=== PATIENT | male | born 1980 | race Two or more races ===

== ENCOUNTER 2024-01-14 18:44 | Emergency (ER) | payer OTHER ==
[~2024-01-14] VITALS: Ht 180.3 cm; Wt 95.3 kg
[2024-01-14] MEDS ORDERED: IRBESARTAN-HCT1 EACH PO (19:11)
[2024-01-14] MEDS ORDERED: KETOROLAC TROMETHAMINE 30 MG VIAL ONE (19:23)
[2024-01-14] MEDS ORDERED: HYOSCYAMINE SULFATE 0.125 MG TAB.SUBL ONE (19:23)
[2024-01-14] MEDS ORDERED: ONDANSETRON HCL 2 MG/ML VIAL ONE (19:23)
[2024-01-14] MEDS ORDERED: FAMOTIDINE/PF 20 MG/2 ML VIAL ONE (19:24)
[2024-01-14] MEDS ORDERED: FAMOTIDINE/PF 20 MG/2 ML VIAL IV PUSH ONE (19:30)
[2024-01-14] MEDS ORDERED: ONDANSETRON HCL 2 MG/ML VIAL IV ONE (19:30)
[2024-01-14] MEDS ORDERED: HYOSCYAMINE SULFATE 0.125 MG TAB.SUBL SL ONE (19:30)
[2024-01-14] MEDS ORDERED: KETOROLAC TROMETHAMINE 15 MG VIAL IV ONE (19:30)
[2024-01-14 19:46] LABS: PH,URINE 6.5 (5.0-8.0); URINE APPEARANCE Clear; URINE BILIRRUBIN Negative (NEGATIVE); URINE BLOOD Large; URINE COLOR Yellow; URINE GLUCOSE Negative (NEGATIVE); URINE KETONE Trace (NEGATIVE); URINE LEUKOCYTE Negative; URINE NITRATE Negative; URINE PROTEIN Trace (NEGATIVE)
[2024-01-14 19:48] LABS: HEMATOCRIT 44.1 % (39.0-48.0); HEMOGLOBIN 15.2 g/dL (13-16.00); MEAN CORPUSCULAR HEMOGLOBIN 28.3 pg (27.00-32.0); MEAN CORPUSCULAR HGB CONC 34.5 g/dl (32.0-36.0); PLATELET COUNT 222 K/uL (150-450); RED BLOOD COUNT 5.38 M/uL (4.00-6.00); RED CELL DISTRIBUTION WIDTH 13.3 % (11.5-14.5)
[2024-01-14 19:49] LABS: URINE BACTERIA 27.7 uL (0.0-1933); URINE EPITHELIAL CELLS 9.4 uL (0.0-38.8); URINE RBC 1029.1 uL (0.0-20.8); URINE WBC 10.3 uL (0.0-23.2)
[2024-01-14 19:56] LABS: URINE CAST 0.45 uL (0.0-1.40)
[2024-01-14 20:13] LABS: ALBUMIN 4.3 gm/dL (3.4-5.0); BILIRUBIN TOTAL 0.62 mg/dL (0.3-1.2); CALCIUM 9.4 mg/dL (8.5-10.1); CREATININE SERUM 1.24 mg/dL (0.70-1.30); GFR 63.04; GLOBULINA 3.7 G/DL (2.4-3.5); POTASSIUM 3.62 mEq/L (3.5-5.1)
[2024-01-14] MEDS ORDERED: METHYLPREDNISOLONE SOD SUCC 125 MG VIAL ONE (20:29)
[2024-01-14] MEDS ORDERED: DIPHENHYDRAMINE HCL 50 MG/ML VIAL 1ML ONE (20:29)
[2024-01-14] MEDS ORDERED: METHYLPREDNISOLONE SOD SUCC 125 MG VIAL IV ONE (20:30)
[2024-01-14] MEDS ORDERED: DIPHENHYDRAMINE HCL 50 MG/ML VIAL 1ML IV ONE (20:30)
== END 2024-01-14 21:53 | disposition home or self-care (01) ==
LOC: ER 18:45
PROVIDERS: General Practice
DX: N21.0 Calculus in bladder (principal); R10.31 Right lower quadrant pain; Z91.013 Allergy to seafood; I10 Essential (primary) hypertension